=== PATIENT | female | born 1965 | race American Indian/Alaskan Native ===

== ENCOUNTER 2016-09-07 08:47 | Emergency (ER) | payer SELFPAY ==
[2016-09-07 08:58] VITALS: BP 154/96
--- NOTE | 2016-09-07 10:31 | Emergency Department Report ---
ED Eye Problem HPI - General Chief complaint: Eye Problems Stated complaint: PINK EYE Time Seen by Provider: 09/07/16 09:34 Source: patient Mode of arrival: Ambulatory Limitations: No Limitations - History of Present Illness MD chief complaint: eye pain, eye redness -: Gradual, days(s) (4) Location: both eyes If Injury: none Eye Symptoms: burning, redness, pain, itching, discharge Severity: moderate If Pain, Quality: burning Consistency: constant Associated Symptoms: other (eye swelling). denies: headache, neck pain, cough, rhinorrhea, fever Treatments Prior to Arrival: none - Related Data Previous Rx's Medication Instructions Recorded Last Taken Type Amoxicillin 1,000 mg PO BID #40 capsule 09/07/16 Unknown Rx Polymyxin B Sulf/Trimethoprim 2 drop OU TID #10 drops 09/07/16 Unknown Rx [Polytrim Eye Drops] predniSONE [Deltasone] 40 mg PO QDAY 5 Days 09/07/16 Unknown Rx Allergies Allergy/AdvReac Type Severity Reaction Status Date / Time No Known Allergies Allergy Unverified 09/07/16 08:52 ED Review of Systems ROS: Stated complaint: PINK EYE Other details as noted in HPI Constitutional: denies: chills, fever Eyes: eye pain, eye discharge. denies: vision change ENT: denies: ear pain, throat pain Respiratory: denies: cough, shortness of breath, wheezing Cardiovascular: denies: chest pain, palpitations Endocrine: no symptoms reported Gastrointestinal: denies: abdominal pain, nausea, diarrhea Genitourinary: denies: urgency, dysuria, discharge Musculoskeletal: denies: back pain, joint swelling, arthralgia Skin: denies: rash, lesions Neurological: denies: headache, weakness, paresthesias Psychiatric: denies: anxiety, depression Hematological/Lymphatic: denies: easy bleeding, easy bruising ED Past Medical Hx - Past Medical History Hx Hypertension: Yes - Surgical History Past Surgical History?: No - Social History Smoking Status: Never Smoker Substance Use Type: Marijuana - Medications Home Medications: Home Medications Medication Instructions Recorded Confirmed Last Taken Type Amoxicillin 1,000 mg PO BID #40 capsule 09/07/16 Unknown Rx Polymyxin B Sulf/Trimethoprim 2 drop OU TID #10 drops 09/07/16 Unknown Rx [Polytrim Eye Drops] predniSONE [Deltasone] 40 mg PO QDAY 5 Days 09/07/16 Unknown Rx ED Physical Exam - General Limitations: No Limitations General appearance: alert, in no apparent distress - Head Head exam: Present: atraumatic, normocephalic - Eye Eye exam: Present: normal appearance, conjunctival injection, other (bilateral eyelid swelling and redness). Absent: periorbital swelling, periorbital tenderness Pupils: Present: normal accommodation - ENT ENT exam: Present: normal exam, normal orophraynx, mucous membranes dry, mucous membranes moist, TM's normal bilaterally, normal external ear exam - Neck Neck exam: Present: normal inspection, full ROM. Absent: tenderness, lymphadenopathy - Respiratory Respiratory exam: Present: normal lung sounds bilaterally. Absent: respiratory distress - Cardiovascular Cardiovascular Exam: Present: regular rate, normal rhythm. Absent: systolic murmur, diastolic murmur, rubs, gallop - GI/Abdominal GI/Abdominal exam: Present: soft, normal bowel sounds - Extremities Exam Extremities exam: Present: normal inspection - Back Exam Back exam: Present: normal inspection - Neurological Exam Neurological exam: Present: alert, oriented X3 - Psychiatric Psychiatric exam: Present: normal affect, normal mood - Skin Skin exam: Present: warm, dry, intact, normal color. Absent: rash ED Course Vital Signs 09/07/16 08:52 Temperature 98.8 F Pulse Rate 88 Respiratory 18 Rate Blood Pressure 154/96 O2 Sat by Pulse 100 Oximetry ED Medical Decision Making - Medical Decision Making patient is non-toxic and hemodynamically stable. She does not have signs consisitent wtih periorbital cellulitis Critical care attestation.: If time is entered above; I have spent that time in minutes in the direct care of this critically ill patient, excluding procedure time. ED Disposition Clinical Impression: Conjunctivitis Disposition: DISCHARGED TO HOME OR SELFCARE Is pt being admited?: No Does the pt Need Aspirin: No Condition: Good Instructions: Conjunctivitis (ED) Prescriptions: Amoxicillin 1,000 mg PO BID #40 capsule Polymyxin B Sulf/Trimethoprim [Polytrim Eye Drops] 2 drop OU TID #10 drops predniSONE [Deltasone] 40 mg PO QDAY 5 Days Referrals: PRIMARY CARE, [Primary Care Provider] - 3-5 Days Time of Disposition: 10:31
== END 2016-09-07 10:35 | disposition home or self-care (01) ==
LOC: ED 08:47
DX: H10.9 Unspecified conjunctivitis (principal); I10 Essential (primary) hypertension; F12.10 Cannabis abuse, uncomplicated
CPT/HCPCS: 99282

== ENCOUNTER 2017-04-25 12:25 | Emergency (ER) | payer OTHER ==
[2017-04-25 13:13] LABS: Hematocrit 37.7 % (30.3-42.9); Hemoglobin 12.6 gm/dl (10.1-14.3); Mean Corpuscular HGB Conc 33 % (30-34); Mean Corpuscular Hemoglobin 29 pg (28-32); Mean Corpuscular Volume 88 fl (79-97); Platelet Count 258 K/mm3 (140-440); Red Cell Distribution Width 12.4 % (13.2-15.2)
[2017-04-25 13:28] LABS: Anion Gap 13 mmol/L; BUN/Creatinine Ratio 12; Blood Urea Nitrogen 11 mg/dL (7-17); Calcium 8.6 mg/dL (8.4-10.2); Carbon Dioxide 27 mmol/L (22-30); Glucose 109 mg/dL (65-100); Potassium 3.7 mmol/L (3.6-5.0); Sodium 138 mmol/L (137-145)
[2017-04-25 15:31] LABS: Bilirubin,Urine NEG (Negative); Blood,Urine NEG (Negative); Ketones,Urine NEG (Negative); Leukocyte Esterase,Urine SM (Negative); Nitrite,Urine NEG (Negative); Protein,Urine <15 mg/dL mg/dL (Negative); Urobilinogen,Urine < 2.0 mg/dL (<2.0)
[2017-04-25 16:08] VITALS: BP 170/90
[2017-04-25] MEDS ORDERED: NORVASC PO ONE (16:24)
--- NOTE | 2017-04-25 17:38 | Emergency Department Report ---
ED General Adult HPI - General Chief complaint: High BP Stated complaint: HYPERTENSION Time Seen by Provider: 04/25/17 15:36 Source: patient Mode of arrival: Ambulatory Limitations: No Limitations - History of Present Illness Initial comments: 51-year-old female the past medical history hypertension noncompliant with medications times when he represents a hospital with elevated blood pressure. Patient went to donate plasma and was denied because her blood pressure was elevated. Patient complained of some slight dizziness this morning which has since resolved. She denies headache, chest pain, blurry vision, focal weakness or numbness. Patient cannot recall her previous blood pressure medication but states it was a 20 mg daily dose. PND: [facility] however, patient has not followed up recently. - Related Data Previous Rx's Medication Instructions Recorded Last Taken Type Amoxicillin 1,000 mg PO BID #40 capsule 09/07/16 Unknown Rx Polymyxin B Sulf/Trimethoprim 2 drop OU TID #10 drops 09/07/16 Unknown Rx [Polytrim Eye Drops] predniSONE [Deltasone] 40 mg PO QDAY 5 Days tab 09/07/16 Unknown Rx amLODIPine [Norvasc] 5 mg PO DAILY #30 tab 04/25/17 Unknown Rx Allergies Allergy/AdvReac Type Severity Reaction Status Date / Time No Known Allergies Allergy Unverified 09/07/16 08:52 ED Review of Systems ROS: Stated complaint: HYPERTENSION Other details as noted in HPI Comment: All other systems reviewed and negative Other: Constitutional: No fevers chills Eyes: No eye pain visual changes ENT: No ear pain or throat pain Neck: Denies pain Respiratory: Denies cough wheezing shortness of breath Cardiovascular: Denies chest pain, palpitations, syncope GI: Denies abdominal pain, nausea, vomiting, diarrhea : Denies dysuria Musculoskeletal: Denies back pain Skin: Denies rash, lesions, erythema Neurologic: Denies headache, numbness, weakness Psychiatric: Denies suicidal ideation, hallucinations ED Past Medical Hx - Past Medical History Hx Hypertension: Yes - Social History Smoking Status: Never Smoker Substance Use Type: None - Medications Home Medications: Home Medications Medication Instructions Recorded Confirmed Last Taken Type Amoxicillin 1,000 mg PO BID #40 capsule 09/07/16 Unknown Rx Polymyxin B Sulf/Trimethoprim 2 drop OU TID #10 drops 09/07/16 Unknown Rx [Polytrim Eye Drops] predniSONE [Deltasone] 40 mg PO QDAY 5 Days tab 09/07/16 Unknown Rx amLODIPine [Norvasc] 5 mg PO DAILY #30 tab 04/25/17 Unknown Rx ED Physical Exam - General Limitations: No Limitations - Other Other exam information: General: No limitations Head exam: Atraumatic, normocephalic Eyes exam: Normal appearance ENT: Moist mucous membrane, normal oropharynx Neck exam: Normal inspection, full range of motion, no meningismus nontender Respiratory exam: Clear to auscultation bilateral, no wheezes, rales, crackles Cardiovascular: Normal rate and rhythm, normal heart sounds Abdomen: Soft, nondistended, and nontender, with normal bowel sounds, no rebound, or guarding Extremity: Full range of motion normal inspection no deformity Back: Normal Inspection, full range of motion, no tenderness Neurologic: Alert, oriented x3, cranial nerves intact, no motor or sensory deficit Psychiatric: normal affect, normal mood Skin: Warm, dry, intact ED Course Vital Signs 04/25/17 04/25/17 04/25/17 12:29 15:00 16:07 Temperature 98.6 F Pulse Rate 89 88 74 Respiratory 16 16 Rate Blood Pressure 174/94 Blood Pressure 171/106 170/90 [Left] O2 Sat by Pulse 100 Oximetry - Reevaluation(s) Reevaluation #1: 04/25/17 17:38 Patient's blood pressure mildly elevated. Norvasc 5 mg initiated. Patient asymptomatic ED Medical Decision Making - Lab Data Result diagrams: 04/25/17 12:48 04/25/17 12:48 Lab Results 04/25/17 04/25/17 04/25/17 Range/Units 12:48 12:48 15:17 WBC 7.0 (4.5-11.0) K/mm3 RBC 4.30 (3.65-5.03) M/mm3 Hgb 12.6 (10.1-14.3) gm/dl Hct 37.7 (30.3-42.9) % MCV 88 (79-97) fl MCH 29 (28-32) pg MCHC 33 (30-34) % RDW 12.4 L (13.2-15.2) % Plt Count 258 (140-440) K/mm3 Sodium 138 (137-145) mmol/L Potassium 3.7 (3.6-5.0) mmol/L Chloride 102.0 (98-107) mmol/L Carbon Dioxide 27 (22-30) mmol/L Anion Gap 13 mmol/L BUN 11 (7-17) mg/dL Creatinine 0.9 (0.7-1.2) mg/dL Estimated GFR > 60 ml/min BUN/Creatinine Ratio 12 % Glucose 109 H (65-100) mg/dL Calcium 8.6 (8.4-10.2) mg/dL Urine Color Straw (Yellow) Urine Turbidity Clear (Clear) Urine pH 6.0 (5.0-7.0) Ur Specific [place] 1.008 (1.003-1.030) Urine Protein <15 mg/dl (Negative) mg/dL Urine Glucose (UA) Neg (Negative) mg/dL Urine Ketones Neg (Negative) mg/dL Urine Blood Neg (Negative) Urine Nitrite Neg (Negative) Urine Bilirubin Neg (Negative) Urine Urobilinogen < 2.0 (<2.0) mg/dL Ur Leukocyte Esterase Sm (Negative) Urine WBC (Auto) 11.0 H (0.0-6.0) /HPF Urine RBC (Auto) 2.0 (0.0-6.0) /HPF U Epithel Cells (Auto) 1.0 (0-13.0) /HPF - EKG Data -: EKG Interpreted by Me (70) EKG shows normal: sinus rhythm, axis (46), QRS complexes (86), ST-T waves (no stemi/t wave inv) Rate: normal - Medical Decision Making Patient has asymptomatic hypertension. She was treated with Norvasc. No signs of lab or EKG abnormalities. We'll discharge home with follow-up - Differential Diagnosis hypertensive emergency/urgency Critical Care Time: No Critical care attestation.: If time is entered above; I have spent that time in minutes in the direct care of this critically ill patient, excluding procedure time. ED Disposition Clinical Impression: Asymptomatic hypertension, Noncompliance with medication regimen Disposition: DC- TO HOME OR SELFCARE Is pt being admited?: No Does the pt Need Aspirin: No Condition: Stable Instructions: Hypertension (ED) Additional Instructions: Continue the medication as prescribed. Continue to monitor your blood pressure at home to see if it is an effective dose. This medication may be increased to 10 mg. It is very important that you follow with the primary care doctor for further treatment and management. Please return if symptoms worsen as indicated by your discharge and discharged Prescriptions: amLODIPine [Norvasc] 5 mg PO DAILY #30 tab Referrals: [facility] [Provider Group] - 3-5 Days Time of Disposition: 17:43
== END 2017-04-25 18:08 | disposition home or self-care (01) ==
LOC: ED 12:25
DX: I10 Essential (primary) hypertension (principal); Z91.14 Patient's other noncompliance with medication regimen
CPT/HCPCS: 36415; 80048; 81001; 85027; 93005; 99283

== ENCOUNTER 2018-01-25 09:37 | Emergency (ER) | payer OTHER ==
[2018-01-25 09:46] VITALS: BP 147/84
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
--- NOTE | 2018-01-25 13:02 | XRay Report ---
RIGHT SHOULDER, 3 VIEWS: HISTORY: right shoulder pain. Normal bone mineralization. No acute osseous injury or joint pathology is detected. The soft tissues are unremarkable. IMPRESSION: Right shoulder within normal limits.
--- NOTE | 2018-01-25 13:02 | XRay Report ---
AP AND LATERAL CERVICAL SPINE: History: Neck pain. The vertebral bodies are well mineralized and normal in alignment and vertebral height with well preserved interspace distances. The visualized portions of the posterior elements are normal. IMPRESSION: Cervical spine within normal limits.
== END 2018-01-25 13:34 | disposition home or self-care (01) ==
LOC: ED 09:37
DX: S46.911A Strain of unspecified muscle, fascia and tendon at shoulder and upper arm level, right arm, initial encounter (principal); S16.1XXA Strain of muscle, fascia and tendon at neck level, initial encounter; I10 Essential (primary) hypertension; V89.2XXA Person injured in unspecified motor-vehicle accident, traffic, initial encounter; Y93.89 Activity, other specified; Y92.89 Other specified places as the place of occurrence of the external cause; Y99.8 Other external cause status
CPT/HCPCS: 72040; 99283

== ENCOUNTER 2018-09-29 11:25 | Emergency (ER) | payer OTHER ==
[2018-09-29 11:35] VITALS: BP 134/89
--- NOTE | 2018-09-29 11:36 | Emergency Department Report ---
Blank Doc - Documentation Documentation: This is a 53-year-old female that presents with dizziness and HTN. Patient st ated that she has been out of her meds for 2 weeks. Denies any headache. This initial assessment/diagnostic orders/clinical plan/treatment(s) is/are subject to change based on patient's health status, clinical progression and re- assessment by fellow clinical providers in the ED. Further treatment and workup at subsequent clinical providers discretion. Patient/guardians urged not to elope from the ED as their condition may be serious if not clinically assessed and managed. Initial orders include: 1- Patient sent to [facility] for further evaluation and treatment. 2- labs
[2018-09-29 12:22] LABS: Basophils % (Auto) 0.8 % (0.0-1.8); Eosinophils % (Auto) 0.7 % (0.0-4.3); Hematocrit 37.2 % (30.3-42.9); Hemoglobin 12.3 gm/dl (10.1-14.3); Lymphocytes # (Auto) 1.9 K/mm3 (1.2-5.4); Lymphocytes % (Auto) 31.2 % (13.4-35.0); Mean Corpuscular HGB Conc 33 % (30-34); Mean Corpuscular Volume 87 fl (79-97); Monocytes # (Auto) 0.3 K/mm3 (0.0-0.8); Monocytes % (Auto) 5.6 % (0.0-7.3); Platelet Count 284 K/mm3 (140-440); Red Blood Count 4.26 M/mm3 (3.65-5.03); Red Cell Distribution Width 13.3 % (13.2-15.2)
[2018-09-29 12:43] LABS: BUN/Creatinine Ratio 19; Blood Urea Nitrogen 13 mg/dL (7-17); Calcium 9.1 mg/dL (8.4-10.2); Hemolysis Index 56
--- NOTE | 2018-09-29 12:56 | Emergency Department Report ---
ED General Adult HPI - General Chief complaint: High BP Stated complaint: BP Time Seen by Provider: 09/29/18 11:35 Source: patient Mode of arrival: Ambulatory Limitations: No Limitations - History of Present Illness Initial comments: Patient presents to the emergency department with a chief complaint of elevated blood pressure. Patient denies chest pain, shortness breath, headache, abdominal pain. Patient states she's been without her Norvasc 10 mg for the last 2 weeks. Patient has no other complaints -: Sudden Radiation: non-radiation Severity scale (0 -10): 0 Improves with: none Worsens with: none Associated Symptoms: denies other symptoms Treatments Prior to Arrival: none - Related Data Previous Rx's Medication Instructions Recorded Last Taken Type Amoxicillin 1,000 mg PO BID #40 capsule 09/07/16 Unknown Rx Polymyxin B Sulf/Trimethoprim 2 drop OU TID #10 drops 09/07/16 Unknown Rx [Polytrim Eye Drops] predniSONE [Deltasone] 40 mg PO QDAY 5 Days tab 09/07/16 Unknown Rx amLODIPine [Norvasc] 5 mg PO DAILY #30 tab 04/25/17 Unknown Rx Ibuprofen [Motrin 800 MG tab] 800 mg PO Q8HR PRN #15 tablet 01/25/18 Unknown Rx amLODIPine [Norvasc] 10 mg PO DAILY #30 tab 09/29/18 Unknown Rx Allergies Allergy/AdvReac Type Severity Reaction Status Date / Time No Known Allergies Allergy Verified 01/25/18 09:41 ED Review of Systems ROS: Stated complaint: BP Other details as noted in HPI Comment: All other systems reviewed and negative Constitutional: denies: chills, fever Eyes: denies: eye pain, eye discharge, vision change ENT: denies: ear pain, throat pain Respiratory: denies: cough, shortness of breath, wheezing Cardiovascular: denies: chest pain, palpitations Endocrine: no symptoms reported Gastrointestinal: denies: abdominal pain, nausea, diarrhea Genitourinary: denies: urgency, dysuria, discharge Musculoskeletal: denies: back pain, joint swelling, arthralgia Skin: denies: rash, lesions Neurological: denies: headache, weakness, paresthesias Psychiatric: denies: anxiety, depression Hematological/Lymphatic: denies: easy bleeding, easy bruising ED Past Medical Hx - Past Medical History Previous Medical History?: Yes Hx Hypertension: Yes - Surgical History Past Surgical History?: No - Social History Smoking Status: Never Smoker Substance Use Type: None - Medications Home Medications: Home Medications Medication Instructions Recorded Confirmed Last Taken Type Amoxicillin 1,000 mg PO BID #40 capsule 09/07/16 Unknown Rx Polymyxin B Sulf/Trimethoprim 2 drop OU TID #10 drops 09/07/16 Unknown Rx [Polytrim Eye Drops] predniSONE [Deltasone] 40 mg PO QDAY 5 Days tab 09/07/16 Unknown Rx amLODIPine [Norvasc] 5 mg PO DAILY #30 tab 04/25/17 Unknown Rx Ibuprofen [Motrin 800 MG tab] 800 mg PO Q8HR PRN #15 tablet 01/25/18 Unknown Rx amLODIPine [Norvasc] 10 mg PO DAILY #30 tab 09/29/18 Unknown Rx ED Physical Exam - General Limitations: No Limitations General appearance: alert, in no apparent distress - Head Head exam: Present: atraumatic, normocephalic - Eye Eye exam: Present: normal appearance, PERRL, EOMI - ENT ENT exam: Present: mucous membranes moist - Neck Neck exam: Present: normal inspection - Respiratory Respiratory exam: Present: normal lung sounds bilaterally. Absent: respiratory distress, wheezes - Cardiovascular Cardiovascular Exam: Present: regular rate, normal rhythm. Absent: systolic murmur, diastolic murmur, rubs, gallop - GI/Abdominal GI/Abdominal exam: Present: soft, normal bowel sounds. Absent: distended, tenderness - Extremities Exam Extremities exam: Present: normal inspection - Back Exam Back exam: Present: normal inspection - Neurological Exam Neurological exam: Present: alert, oriented X3, CN II-XII intact. Absent: motor sensory deficit - Psychiatric Psychiatric exam: Present: normal affect, normal mood - Skin Skin exam: Present: warm, dry, intact, normal color. Absent: rash ED Course Vital Signs 09/29/18 11:34 Temperature 98.2 F Pulse Rate 103 H Respiratory 20 Rate Blood Pressure 134/89 O2 Sat by Pulse 99 Oximetry ED Medical Decision Making - Lab Data Result diagrams: 09/29/18 11:56 09/29/18 11:56 - Medical Decision Making Plan of care discussed Critical care attestation.: If time is entered above; I have spent that time in minutes in the direct care of this critically ill patient, excluding procedure time. ED Disposition Clinical Impression: Hypertension Disposition: DC-01 TO HOME OR SELFCARE Is pt being admited?: No Does the pt Need Aspirin: No Condition: Stable Instructions: Hypertension (ED) Additional Instructions: return if worse Prescriptions: amLODIPine [Norvasc] 10 mg PO DAILY #30 tab Referrals: JAMEL CARTER MD [Primary Care Provider] - 3-5 Days [facility] [Provider Group] - 3-5 Days [facility] [Provider Group] - 3-5 Days Time of Disposition: 12:55
== END 2018-09-29 13:10 | disposition home or self-care (01) ==
LOC: ED 11:25
DX: I10 Essential (primary) hypertension (principal)
CPT/HCPCS: 36415; 80048; 85025